=== PATIENT | female | born 2000 | race Asian ===

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

== ENCOUNTER 2019-04-23 00:43 | Emergency (ER) | payer OTHER ==
[~2019-04-23] VITALS: Ht 154.9 cm; Wt 52.2 kg
[2019-04-23 01:38] LABS: PLATELET COUNT 226 K/uL (152-353)
[2019-04-23 01:43] LABS: POTASSIUM 4.1 mmol/L (3.6-5.2)
[2019-04-23 02:38] VITALS: BP 119/84; TEMP 98
== END 2019-04-23 02:38 | disposition home or self-care (01) ==
LOC: ED 00:43
PROVIDERS: Emergency Medicine
DX: N39.0 Urinary tract infection, site not specified (principal); R10.84 Generalized abdominal pain
CPT/HCPCS: 36415; 80053; 81000; 81025; 85027; 99283; J1885

== ENCOUNTER 2020-04-06 15:42 | Emergency (ER) | payer OTHER ==
[~2020-04-06] VITALS: Ht 154.9 cm; Wt 52.2 kg
[2020-04-06 16:01] VITALS: BP 126/85; TEMP 100
== END 2020-04-06 17:23 | disposition home or self-care (01) ==
LOC: ED 15:42
DX: S93.491A Sprain of other ligament of right ankle, initial encounter (principal); S16.1XXA Strain of muscle, fascia and tendon at neck level, initial encounter; V48.0XXA Car driver injured in noncollision transport accident in nontraffic accident, initial encounter; Y92.89 Other specified places as the place of occurrence of the external cause
CPT/HCPCS: 96372; 99283; J1885

== ENCOUNTER 2021-05-06 09:31 | Emergency (ER) | payer OTHER ==
[~2021-05-06] VITALS: Ht 154.9 cm; Wt 52.2 kg
[2021-05-06 10:44] LABS: PLATELET COUNT 218 K/uL (152-353); POTASSIUM 3.8 mmol/L (3.6-5.2)
[2021-05-06 11:24] VITALS: BP 132/88; TEMP 98.2
== END 2021-05-06 11:24 | disposition home or self-care (01) ==
LOC: ED 09:31
PROVIDERS: Hospitalist
DX: R10.2 Pelvic and perineal pain (principal); N76.0 Acute vaginitis; N73.8 Other specified female pelvic inflammatory diseases
CPT/HCPCS: 80048; 81000; 81025; 85027; 87490; 87590; 96372; 99283; J0696; J1885; J2405

== ENCOUNTER 2021-08-01 11:31 | Emergency (ER) | payer OTHER ==
[~2021-08-01] VITALS: Ht 154.9 cm; Wt 52.2 kg
[2021-08-01 11:40] VITALS: TEMP 98.7
[2021-08-01 14:15] VITALS: BP 118/80
== END 2021-08-01 14:15 | disposition home or self-care (01) ==
LOC: ED 11:31
DX: N93.8 Other specified abnormal uterine and vaginal bleeding (principal)
CPT/HCPCS: 81000; 81025; 87210; 87220; 87490; 87590; 99284

== ENCOUNTER 2022-01-13 21:02 | Emergency (ER) | payer OTHER ==
[~2022-01-13] VITALS: Ht 152.4 cm; Wt 52.2 kg
[2022-01-13 21:06] VITALS: TEMP 99.5
[2022-01-13 21:50] VITALS: BP 128/85
== END 2022-01-13 21:50 | disposition home or self-care (01) ==
LOC: ED 21:02
DX: K08.89 Other specified disorders of teeth and supporting structures (principal); S02.5XXA Fracture of tooth (traumatic), initial encounter for closed fracture; X58.XXXA Exposure to other specified factors, initial encounter; Y92.89 Other specified places as the place of occurrence of the external cause; Z98.890 Other specified postprocedural states
CPT/HCPCS: 96372; 99283; J0696; J1885

== ENCOUNTER 2022-09-08 11:59 | Emergency (ER) | payer OTHER ==
[~2022-09-08] VITALS: Ht 152.4 cm; Wt 56.2 kg
[2022-09-08 12:02] VITALS: TEMP 97.4
[2022-09-08 13:02] LABS: PLATELET COUNT 195 K/uL (152-353)
[2022-09-08 13:07] LABS: POTASSIUM 3.8 mmol/L (3.6-5.2)
[2022-09-08 14:05] VITALS: BP 128/62
== END 2022-09-08 14:08 | disposition home or self-care (01) ==
LOC: ED 11:59
PROVIDERS: Family Medicine
DX: O47.03 False labor before 37 completed weeks of gestation, third trimester (principal); Z3A.29 29 weeks gestation of pregnancy; E86.0 Dehydration; F12.10 Cannabis abuse, uncomplicated
CPT/HCPCS: 80053; 80307; 81002; 85027; 99284

== ENCOUNTER 2023-01-19 10:55 | Emergency (ER) | payer OTHER ==
[~2023-01-19] VITALS: Ht 152.4 cm; Wt 56.7 kg
[2023-01-19 11:49] LABS: PLATELET COUNT 221 K/uL (152-353)
[2023-01-19 12:58] VITALS: BP 121/70; TEMP 99.7
== END 2023-01-19 12:58 | disposition home or self-care (01) ==
LOC: ED 10:55
PROVIDERS: Family Medicine
DX: U07.1 COVID-19 (principal); M54.9 Dorsalgia, unspecified
CPT/HCPCS: 36415; 81000; 85027; 87635; 99283; U0003